=== PATIENT | female | born 2000 | race Caucasian/White ===

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

== ENCOUNTER 2021-08-06 12:58 | Outpatient (CLI) | payer BC, OTHER, SELFPAY ==
--- NOTE | ~2021-08-06 | MR_ITS ---
EXAMINATION: MR knee LT wo con DATE: 08/06/2021 13:36 INDICATION: Acute left knee pain. TECHNIQUE: Magnetic resonance imaging (MRI) of the left knee was performed without intravenous contra st. Sequences included axial PD-weighted FS FSE, coronal PD-weighted FSE and PD-weighted FS FSE, sagi ttal PD-weighted FSE, and sagittal T2-weighted FS FSE. COMPARISON: None. FINDINGS: Medial compartment: There is a vertical tear of posterior horn of medial meniscus. Medial compartment cartilage is normal . There are is subchondral edema in medial aspect of femoral condyle and posterior aspect of tibial c ondyle, consistent with contusions. Lateral compartment: Lateral meniscus is normal. Lateral compartment cartilage is normal. There is subchondral edema-like marrow signal intensity involving femoral condyle at the notch and posterior aspect of tibial condyle , consistent with contusions. Patellofemoral compartment: The patellar cartilage is normal. Trochlear cartilage is normal. Ligaments and tendons: There is at least a high grade partial tear of anterior cruciate ligament. Posterior cruciate ligamen t is intact. Medial collateral ligament and lateral collateral ligament complex are intact. There is mild patellar tendinopathy. Fluid: There is a moderate-sized knee joint effusion. There is a small Blankenship's cyst. IMPRESSION: 1. High-grade partial tear versus complete tear of anterior cruciate ligament. 2. Tear of medial meniscus. 3. Moderate-sized knee joint effusion. 4. Small Blankenship's cyst. Reviewed, dictated and finalized at location A.
== END 2021-08-06 12:59 | disposition home or self-care (01) ==
LOC: ANHIMG 13:05
PROVIDERS: Visit Provider Orthopaedic Surgery
DX: M25.562 Pain in left knee (principal); S83.512A Sprain of anterior cruciate ligament of left knee, initial encounter; S83.242A Other tear of medial meniscus, current injury, left knee, initial encounter; M25.462 Effusion, left knee; M71.22 Synovial cyst of popliteal space [Baker], left knee
CPT/HCPCS: 73721